=== PATIENT | male | born 1970 | race African-American/Black ===

== ENCOUNTER 2018-11-10 20:04 | Emergency (ER) | payer BC, OTHER ==
[2018-11-10 20:13] VITALS: BP 132/84; PULSE 86; TEMP 97.6; BMI 24.3
--- NOTE | 2018-11-10 20:39 | PDOC ---
History of Present Illness - General Chief Complaint: Syncope/Near Syncope Stated Complaint: SYNCOPE Time Seen by Provider: 11/10/18 20:32 - History of Present Illness Initial Comments: 11/10/18 20:34 48 yo M with no significant pmh who p/w presyncope and loss of vision. Pt. reports sitting at home with his at approximately 8:00 PM on couch and experienced sudden onset of lightheadedness, right sided facial warmth, and painless, bilateral fleeting loss of peripheral vision, with complete visual loss, that lasted 2 minutes and resolved. This occurred x 3 times while at rest on couch within 10 minute interval. Denies h/o similar presentation. Patient denies ARIZA, tinnitus, hearing loss, N/V, F,C, CP, SOB, Palpitations, cough, wheezing, PND, orthopnea, PND, urinary complaints, abdominal pain, diarrhea, constipation, BPR, hematuria, weakness, sensory changes. PMHx: as noted above. Denies h/o CVA/TIA ROS: as noted SHx: Cigar use 2-3 times per week. Social Etoh. Reports "sips of alcohol today. " Allergies: NKDA Past History - Past Medical History Allergies/Adverse Reactions: Allergies Allergy/AdvReac Type Severity Reaction Status Date / Time No Known Allergies Allergy Verified 11/10/18 20:11 Home Medications: Ambulatory Orders No Home Medications 1 ea MC ONCE 04/24/12 - Suicide/Smoking/Psychosocial Hx Smoking Status: Yes Smoking History: Never smoked Have you smoked in the past 12 months: No Number of Cigarettes Smoked Daily: 2 Information on smoking cessation initiated: No Hx Alcohol Use: No Drug/Substance Use Hx: No Review of Systems - Review of Systems Comments:: 11/10/18 20:35 GENERAL/CONSTITUTIONAL: No fever or chills. No weakness. HEAD, EYES, EARS, NOSE AND THROAT:+ change in vision. No ear pain or discharge. No sore throat. CARDIOVASCULAR: No chest pain or shortness of breath RESPIRATORY: No cough, wheezing, or hemoptysis. GASTROINTESTINAL: No nausea, vomiting, diarrhea or constipation. GENITOURINARY: No dysuria, frequency, or change in urination. MUSCULOSKELETAL: No joint or muscle swelling or pain. No neck or back pain. SKIN: No rash NEUROLOGIC: + Lightheadedness. No headache, vertigo, loss of consciousness, or change in strength/sensation. ENDOCRINE: No increased thirst. No abnormal weight change HEMATOLOGIC/LYMPHATIC: No anemia, easy bleeding, or history of blood clots. ALLERGIC/IMMUNOLOGIC: No hives or skin allergy. *Physical Exam - Vital Signs Last Vital Signs Temp Pulse Resp BP Pulse Ox 97.6 F 86 18 132/84 99 11/10/18 20:11 11/10/18 20:11 11/10/18 20:11 11/10/18 20:11 11/10/18 20:11 - Physical Exam Comments: 11/10/18 20:35 GENERAL: Awake, alert, and fully oriented, in no acute distress HEAD: No signs of trauma, normocephalic, atraumatic EYES: OU . PERRLA, EOMI, sclera anicteric, conjunctiva clear ENT: Auricles normal inspection, hearing grossly normal, nares patent, oropharynx clear without exudates. Moist mucosa NECK: Normal ROM, supple, no lymphadenopathy, JVD, or masses LUNGS: No distress, speaks full sentences, clear to auscultation bilaterally HEART: Regular rate and rhythm, normal S1 and S2, no murmurs, rubs or gallops, peripheral pulses normal and equal bilaterally. EXTREMITIES : Normal inspection, Normal range of motion, no edema. No clubbing or cyanosis. NEUROLOGICAL: Cranial nerves II through XII grossly intact. Normal speech, normal gait, no focal sensorimotor deficits. Neg dysmetria on FTN. SKIN: Warm, Dry, normal turgor, no rashes or lesions noted Moderate Sedation - Procedure Monitoring Vital Signs: Procedure Monitoring Vital Signs Temperature 97.6 F 11/10/18 20:11 Pulse Rate 86 11/10/18 20:11 Respiratory Rate 18 11/10/18 20:11 Blood Pressure 132/84 11/10/18 20:11 O2 Sat by Pulse Oximetry (%) 99 11/10/18 20:11 ED Treatment Course - LABORATORY CBC & Chemistry Diagram: 11/10/18 21:00 11/10/18 21:00 Medical Decision Making - Medical Decision Making 11/10/18 20:35 48 yo M with no significant pmh who p/w pre-syncope and fleeting loss of vision now resolved. VSS, AF, A&Ox3. Fundoscopic exam unremarkable. Absent neuro deficits on physical exam. Denies vertiginous symptoms. D/t BL nature and resolved symptoms, low suspicion retinal or vitreous detachment, acute angle glacuoma, or other increased IOP. Will consider VBI/TIA, cardiac arrhythmia, hypoglycemia, electorate abnml, metabolic and toxic derangements, acid-base disturbances, infection. Ed Course: CBC, CMP, Cardiac Pr. EKG, UA 11/10/18 22:28 CBC,CMP: Unremarkable Trop: Neg EKG: NSR with absent SOL, STD Normal interval duration and axis. TWI lead II, AVF ( unchanged from 2012) Patient advised to f/u with PMD, Neurology Patient stable and symptoms resolved. Stable for d/c with return precautions. *DC/Admit/Observation/Transfer Diagnosis at time of Disposition: Pre-syncope - Discharge Dispostion Condition at time of disposition: Stable - Referrals Referrals: Arron Martinez MD [Staff Physician] - - Patient Instructions Printed Discharge Instructions: DI for Syncope in Adults (Fainting) Additional Instructions: Please return to the emergency department with any new or worsening symptoms or concerns. Please follow up with your primary care physician within 72 hours. Please follow up with neurology within one week. - Post Discharge Activity - Attestations Physician Attestion: 11/10/18 20:35 I attest to the information provided in this note.
[2018-11-10 21:09] LABS: EOS % 2.9 % (0-4.5); HEMATOCRIT 37.7 % (35.4-49); HEMOGLOBIN 12.6 GM/dL (11.7-16.9); LYMPH % 18.6 % (8-40); MCH 31.3 pg (25.7-33.7); MCHC 33.4 g/dl (32.0-35.9); MEAN CELL VOLUME 93.7 fl (80-96); MEAN PLT VOLUME 7.4 fl (7.5-11.1); MONO % 6.5 % (3.8-10.2); PLATELET COUNT 296 K/MM3 (134-434); RBC 4.02 M/mm3 (4.00-5.60); RDW 13.4 % (11.9-15.9); WHITE BLOOD COUNT 7.6 K/mm3 (4.0-10.0)
[2018-11-10 21:52] LABS: ALBUMIN 3.5 g/dl (3.4-5.0); ALK PHOS 120 U/L (45-117); ANION GAP 8 MMOL/L (8-16); BILIRUBIN,TOTAL 0.6 mg/dL (0.2-1); BLOOD UREA NITROGEN 18 mg/dL (7-18); CALCIUM 8.9 mg/dL (8.5-10.1); CHLORIDE 103 mmol/L (98-107); CO2 27 mmol/L (21-32); CREATININE 1.2 mg/dL (0.55-1.3); GLUCOSE,RANDOM 152 mg/dL (74-106); SGOT/AST 24 U/L (15-37); SGPT/ALT 22 U/L (13-61); SODIUM 138 mmol/L (136-145); TOT PROT 7.8 g/dl (6.4-8.2)
--- NOTE | 2018-11-10 21:53 | PDOC ---
Attending Attestation - Physicial Exam PE: 11/10/18 23:26 NAD, well appearing, MMM, nl conjunctiva, anicteric; neck supple. lungs clear, RRR, abdomen soft nontender. TENA x4. No peripheral edema. normal color for ethnicity, WWP. Alert, oriented to person time and place. CN II-XII grossly intact. Strength prox and distally 5/5 throughout. Sensation grossly intact to light touch. TENA x4. No dysmetria, bilateral finger to nose and heel to barton equal and symmetric. Speech clear. - Medical Decision Making 11/10/18 23:26 Documentation prepared by Candace Hernandez, acting as medical service technician for Amira Mane MD. 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 reports sitting at home with his at approximately 8:00 PM on couch talking and drinking some alcohol sips, and experienced sudden onset of lightheadedness, diffuse facial warmth and flushing/sweats, and painless, bilateral fleeting loss of peripheral vision, that lasted 2 minutes and resolved. no confusion no LOC or syncope. no bladder or bowel incontinence. no fall or trauma.. Denies h/o similar presentation. +ate meal today. no cp or sob, ojeda, weakness or paresthesias. 11/10/18 23:36 - Medical Decision Making 11/10/18 23:24 I, Amira Mane MD, attest that this document has been prepared under my direction and personally reviewed by me in its entirety. I further attest, that it accurately reflects all work, treatment, procedures and medical decision -making performed by me. hpi as documented VS wnl, hemodynamically stable DDx near syncope, stress reaction, arrhythmia, ACS, sz/syncope. electrolyte/ metabolic derangements. labs and lytes normal, trop neg EKG nonischemic, unchanged from prior, normal intervals, NSR feels well improved. neuro intact, no sx. no cp or sob. 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 neuro followup as outpatient, referrals given PCP followup. return precautions. DC in stable condition, reassurance provided, avoid triggers. family and pt made aware of impression and plan. 11/10/18 23:33 11/10/18 23:36 <Amira Mane - Last Filed: 11/10/18 23:36> Heart Score/ECG Review - ECG Impressions Comment:: 11/10/18 23:25 EKG normal sinus rhythm, no interval abnormalities, narrow QRS, ST and T wave segments and morphology normal. Nonspecific T wave abnormalities - TWI in inferior III, AVF, unchanged from prior <Amira Mane - Last Filed: 11/10/18 23:36>
--- NOTE | 2018-11-11 18:57 | EKG ---
Test Reason : Blood Pressure : / mmHG Vent. Rate : 078 BPM Atrial Rate : 078 BPM P-R Int : 164 ms QRS Dur : 086 ms QT Int : 384 ms P-R-T Axes : 044 005 -06 degrees QTc Int : 437 ms NORMAL SINUS RHYTHM NORMAL ECG WHEN COMPARED WITH ECG OF 24-APR-2012 06:25, FUSION COMPLEXES ARE NO LONGER PRESENT PREMATURE VENTRICULAR COMPLEXES ARE NO LONGER PRESENT Confirmed by LANCE HARRINGTON, MAHNAZ ([id number]) on 11/11/2018 6:57:27 PM Referred By: Confirmed By:MAHNAZ LUCAS MD
== END 2018-11-10 23:42 | disposition home or self-care (01) ==
LOC: JER 20:04
DX: R55 Syncope and collapse (principal)
CPT/HCPCS: 36415; 80053; 82550; 82553; 84484; 85025; 93005; 93010; 99282-25